=== PATIENT | male | born 1995 | race Two or more races ===

== ENCOUNTER 2023-01-18 14:18 | Emergency (ER) | payer OTHER ==
[~2023-01-18] VITALS: Ht 180.3 cm; Wt 65.8 kg
== END 2023-01-18 18:26 | disposition home or self-care (01) ==
LOC: ER 14:18
DX: N50.9 Disorder of male genital organs, unspecified (principal); R53.81 Other malaise

== ENCOUNTER 2023-10-17 11:00 | Emergency (ER) | payer OTHER ==
[~2023-10-17] VITALS: Ht 180.3 cm; Wt 65.8 kg
[2023-10-17 13:37] LABS: URINE APPEARANCE Clear; URINE BILIRRUBIN Negative (NEGATIVE); URINE BLOOD Negative; URINE COLOR Yellow; URINE GLUCOSE Negative (NEGATIVE); URINE LEUKOCYTE Negative; URINE NITRATE Negative; URINE PROTEIN Negative (NEGATIVE); URINE UROBILINOGEN 0.2 E.U./dl; URINE WBC 3.5 uL (0.0-23.2)
[2023-10-17 13:47] LABS: URINE BACTERIA 1.2 uL (0.0-1933); URINE EPITHELIAL CELLS 0.3 uL (0.0-38.8); URINE RBC 0.1 uL (0.0-20.8)
== END 2023-10-17 15:12 | disposition home or self-care (01) ==
LOC: ER 11:00
PROVIDERS: General Practice
DX: N34.2 Other urethritis (principal)

== ENCOUNTER 2025-02-03 10:28 | Emergency (ER) | payer OTHER ==
[~2025-02-03] VITALS: Ht 180.3 cm; Wt 65.8 kg
[2025-02-03] MEDS ORDERED: ACID REDUCER20 M1 PO (11:30)
[2025-02-03] MEDS ORDERED: CLONAZEPAM2 M1 PO (11:31)
[2025-02-03] MEDS ORDERED: DOXYCYCLINE HY100 MG PO (12:26)
[2025-02-03] MEDS ORDERED: PEPCID AC20 MG PO (12:26)
[2025-02-03] MEDS ORDERED: CEFTRIAXONE SODIUM 1,000 MG VIAL IM ONE (12:30)
[2025-02-03] MEDS ORDERED: CEFTRIAXONE SODIUM 1,000 MG VIAL ONE (13:42)
== END 2025-02-03 14:04 | disposition home or self-care (01) ==
LOC: ER 10:28
DX: A64 Unspecified sexually transmitted disease (principal); A54.9 Gonococcal infection, unspecified

== ENCOUNTER → 2025-09-01 | Emergency (ER) | payer OTHER ==
[~2025-09-01] MED LIST: ACID REDUCER20 M1 PO; AVIDOXY100 MG PO; AZITHROMYCIN500 MG PO; CLONAZEPAM2 M1 PO; DOXYCYCLINE HY100 MG PO; PEPCID AC20 MG PO
== END | disposition left against medical advice (07) ==
LOC: ER 12:13
DX: Z53.21 Procedure and treatment not carried out due to patient leaving prior to being seen by health care provider (principal)

== ENCOUNTER 2025-09-04 08:04 | Emergency (ER) | payer OTHER ==
[~2025-09-04] VITALS: Ht 180.3 cm; Wt 63.5 kg
[~2025-09-04 08:04] MED LIST changes: -AVIDOXY100 MG PO; -AZITHROMYCIN500 MG PO
[2025-09-04] MEDS ORDERED: DEXAMETHASONE SODIUM PHOSPHATE 4 MG/ML VIAL IM STA (09:02)
[2025-09-04] MEDS ORDERED: CEFTRIAXONE SODIUM 1,000 MG VIAL IM STA (09:02)
[2025-09-04] MEDS ORDERED: CEFTRIAXONE SODIUM 1,000 MG VIAL ONE (09:12)
[2025-09-04] MEDS ORDERED: DEXAMETHASONE SODIUM PHOSPHATE 4 MG/ML VIAL ONE (09:12)
[2025-09-04 10:20] LABS: BASO % 0.7 % (0.1-1.2); EOS # 0.06 (0.04-0.54); EOS % 0.9 % (0.7-7.0); LYMPH # 1.13 (1.18-3.74); LYMPH % 16.1 % (19.3-53.1); MEAN PLATELET VOLUME 9.90 fl (9.4-12.4); MONO # 0.70 (0.24-0.82); MONO % 10.0 % (4.7-12.5); NEUT # 5.04 (1.56-6.13); NEUT % 72.0 % (34.0-71.1); RED CELL DISTRIBUTION WIDTH 11.7 % (11.6-14.4)
[2025-09-04 10:28] LABS: URINE APPEARANCE Clear; URINE BILIRRUBIN Negative (NEGATIVE); URINE BLOOD Negative; URINE COLOR Yellow; URINE GLUCOSE Negative (NEGATIVE); URINE KETONE Negative (NEGATIVE); URINE LEUKOCYTE Negative; URINE NITRATE Negative; URINE PROTEIN Negative (NEGATIVE); URINE UROBILINOGEN 0.2 E.U./dl
[2025-09-04 10:29] LABS: URINE WBC 2.1 uL (0.0-23.2)
[2025-09-04 10:35] LABS: URINE BACTERIA 1.1 uL (0.0-1933); URINE CAST 0.14 uL (0.0-1.40); URINE EPITHELIAL CELLS 0.0 uL (0.0-38.8); URINE RBC 0.0 uL (0.0-20.8)
[2025-09-04 11:25] LABS: BUN CREA RATIO 19.0 (7.0-25.0); CREATININE SERUM 0.96 mg/dL (0.70-1.30); GFR 91.97; GLUCOSE FASTING 105.0 mg/dL (65-100); OSMOLALITY SERUM 285.0 MOSM/KG (275-295)
[2025-09-04] MEDS ORDERED: AZITHROMYCIN500 MG PO (11:49)
[2025-09-04] MEDS ORDERED: AVIDOXY100 MG PO (11:49)
== END 2025-09-04 12:07 | disposition home or self-care (01) ==
LOC: ER 08:05
PROVIDERS: General Practice
DX: R30.0 Dysuria (principal); F41.8 Other specified anxiety disorders; A64 Unspecified sexually transmitted disease

== ENCOUNTER → 2025-09-22 | Emergency (ER) | payer OTHER ==
[~2025-09-22] VITALS: Ht 180.3 cm; Wt 63.5 kg
[~2025-09-22] MED LIST changes: +AVIDOXY100 MG PO; +AZITHROMYCIN 500 MG TABLET PO ONE; +AZITHROMYCIN500 MG PO; +CEFTRIAXONE SODIUM 1,000 MG VIAL IM ONE; +LEVOFLOXACIN500 MG PO
[2025-09-22 20:45] VITALS: BP 128/78; O2SAT 98
== END | disposition home or self-care (01) ==
LOC: ER 20:29
DX: A54.89 Other gonococcal infections (principal); N34.2 Other urethritis